=== PATIENT | female | born 1965 ===

== ENCOUNTER 2018-10-31 08:49 | Emergency (ER) | payer SELFPAY ==
[2018-10-31 08:52] VITALS: BMI 36.1
[2018-10-31 08:54] VITALS: RESP 16
[2018-10-31 10:38] LABS: BASO % 0.7 % (0.0-2.0); EOS # 0.4 K/uL (0.0-0.7); EOS % 8.4 % (0.0-4.0); HEMOGLOBIN 12.4 g/dL (12.0-16.0); LYMPH # 1.2 K/uL (1.0-4.3); LYMPH % 26.8 % (20.0-40.0); MEAN CORPUSCULAR HEMOGLOBIN 27.7 pg (27.0-31.0); MEAN CORPUSCULAR HGB CONC 33.4 g/dL (33.0-37.0); MEAN PLATELET VOLUME 9.6 fl (7.2-11.7); MONO # 0.4 K/uL (0.0-0.8); MONO % 9.8 % (0.0-10.0); NEUT # 2.5 K/uL (1.8-7.0); NEUT % 54.3 % (50.0-75.0); NRBC % 0.1 % (0.0-0.0); RBC 4.46 Mil/uL (3.80-5.20); RED CELL DISTRIBUTION WIDTH 13.2 % (11.5-14.5); WHITE BLOOD COUNT 4.6 K/uL (4.8-10.8)
[2018-10-31 10:47] LABS: ALB/GLOB RATIO 1.2 (1.0-2.1); ALBUMIN 4.2 g/dL (3.5-5.0); ALT/SGPT 61 U/L (9-52); AST/SGOT 31 U/L (14-36); BLOOD UREA NITROGEN 20 mg/dl (7-17); GFR NON-AFRICAN AMERICAN > 60
--- NOTE | 2018-10-31 11:58 | ED PDOC ---
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 Past Medical History Reviewed: Historical Data, Nursing Documentation, Vital Signs Vital Signs: Last Vital Signs Temp 97.9 F 10/31/18 08:52 Pulse 81 10/31/18 08:52 Resp 16 10/31/18 08:52 BP 118/73 10/31/18 08:52 Pulse Ox 97 10/31/18 08:52 Primary Care Provider: Doctor,Indra - Medical History PMH: Hypercholesterolemia, Hypothyroidism Denies: Chronic Kidney Disease - Surgical History Surgical History: Cholecystectomy - Family History Family History: States: Unknown Family Hx - Immunization History Hx Tetanus Toxoid Vaccination: No Hx Influenza Vaccination: No Hx Pneumococcal Vaccination: No - Home Medications Home Medications: Ambulatory Orders Medication Instructions Recorded Levothyroxine [Synthroid] 150 mcg PO DAILY 08/29/17 Clindamycin [Cleocin] 300 mg PO TID #15 cap 10/31/18 Mupirocin 2% Cream [Bactroban 30 applic TOP BID #1 tube 10/31/18 Cream] - Allergies Allergies/Adverse Reactions: Allergies Allergy/AdvReac Type Severity Reaction Status Date / Time No Known Allergies Allergy Verified 10/31/18 09:11 Review of Systems Constitutional: Positive for: Fever Cardiovascular: Negative for: Chest Pain Respiratory: Negative for: Shortness of Breath Gastrointestinal: Negative for: Abdominal Pain Genitourinary Female: Negative for: Dysuria Musculoskeletal: Negative for: Neck Pain Skin: Positive for: Lesions. Negative for: Rash Neurological: Negative for: Weakness, Numbness Physical Exam - Reviewed Nursing Documentation Reviewed: Yes Vital Signs Reviewed: Yes - Physical Exam Appears: Positive for: Well, Non-toxic Head Exam: Positive for: ATRAUMATIC Skin: Positive for: Normal Color, Warm, Dry Eye Exam: Positive for: Normal appearance Neck: Positive for: Normal, Painless ROM Cardiovascular/Chest: Positive for: Other (R breast 1.5cm faruncle approx @7oclock, nontender no fluctuance no discharge tiny surrounding erythema no nipple tenderness or nipple discharge, no masses palpable) Extremity: Positive for: Other (small L axillary faruncle/folliculitis also noted (healing) nontender). Negative for: Tenderness, Swelling Neurological/Psych: Positive for: Awake, Alert, Normal Tone, Oriented. Negative for: Motor/Sensory Deficits - Laboratory Results Result Diagrams: 10/31/18 10:29 10/31/18 10:29 Lab Results: Total Bilirubin 0.3 mg/dl (0.2-1.3) 10/31/18 10:29 AST 31 U/L (14-36) 10/31/18 10:29 ALT 61 U/L (9-52) H 10/31/18 10:29 Alkaline Phosphatase 67 U/L (38-126) 10/31/18 10:29 Total Protein 7.7 G/DL (6.3-8.2) 10/31/18 10:29 Albumin 4.2 g/dL (3.5-5.0) 10/31/18 10:29 Globulin 3.5 gm/dL (2.2-3.9) 10/31/18 10:29 Albumin/Globulin Ratio 1.2 (1.0-2.1) 10/31/18 10:29 - ECG O2 Sat by Pulse Oximetry: 97 Medical Decision Making Medical Decision Making: labs unremarkable mammo report reviewed from earlier october, negative no fluctuance or mass palpable today to warrant emergent imaging trial clinda and bactroban, mandatory followup clinic recs discussed in [place] Disposition - Clinical Impression Clinical Impression: Furuncle of breast - Patient ED Disposition Is Patient to be Admitted: No Counseled Patient/Family Regarding: Studies Performed, Diagnosis, Need For Followup, Rx Given - Disposition Referrals: [facility] [Outside] Disposition Time: 11:15 Condition: STABLE Additional Instructions: Followup with clinic in one week, return to ER for any worse or new symptoms, fever, weakness, discharge from site, or any concern. Despus del seguimiento con la clnica en maxi semana, regrese a la rai de emergencias por sntomas peores o nuevos, fiebre, debilidad, secrecin del sitio o cualquier inquietud. Prescriptions: Clindamycin [Cleocin] 300 mg PO TID #15 cap Mupirocin 2% Cream [Bactroban Cream] 30 applic TOP BID #1 tube Instructions: Boil (DC) Forms: Raise ([place] Islander) Print Language: FRENCH
[2018-10-31 12:54] VITALS: BP 115/61; PULSE 64; TEMP 98
[2018-11-02 16:38] VITALS: O2SAT 97
== END 2018-10-31 11:55 | disposition home or self-care (01) ==
LOC: H.ER 08:49
DX: L02.223 Furuncle of chest wall (principal); E03.9 Hypothyroidism, unspecified; E78.00 Pure hypercholesterolemia, unspecified